=== PATIENT | female | born 1935 | race Caucasian/White ===

== ENCOUNTER 2018-08-20 10:55 | Day surgery (SDC) | payer MEDICARE ==
[~2018-08-20 10:55] MED LIST: Lactated Ringers 1,000 ML IV SCH; Lidocaine 1%/Sod Bicarbonate in NS 8.4% 1 ML Syringe IDERM PRN; Sodium Chloride 0.9% 10 ML Syringe FLUSH PRN
[2018-08-20] MEDS ORDERED: Triamcinolone Acetonide 40 MG/ML 1 ML MDV ONE (11:13)
[2018-08-20] MEDS ORDERED: Lidocaine 1% 30 ML SDV ONE (11:13)
--- NOTE | 2018-08-20 12:08 | PCM.PREANE ---
Preanesthetic Assessment - Anesthesia/Transfusion/Family Hx Anesthesia History: Prior Anesthesia Without Reaction Family History of Anesthesia Reaction: No Transfusion History: Prior Transfusion Without Reaction Intubation History: Unknown - Review of Systems General: No Symptoms Pulmonary: No Symptoms Cardiovascular: Palpitations (History of heart racinig: more than 10 years) Gastrointestinal: No Symptoms (GERD) Neurological: No Symptoms, Tingling (bilateral fingers on occasion (pinky right mostly)) Other: Reports: Easy Bleeding, Easy Bruising, Neck Pain (occasionaly) - Physical Assessment NPO Status Date: 08/19/18 NPO Status Time: 17:30 Pulse: 64 O2 Sat by Pulse Oximetry: 94 Respiratory Rate: 16 Blood Pressure: 149/69 Temperature: 36.2 C Vital Signs: Last Vital Signs Temp 36.2 C 08/20/18 11:15 Pulse 64 08/20/18 11:15 Resp 16 08/20/18 11:15 BP 149/69 H 08/20/18 11:15 Pulse Ox 94 L 08/20/18 11:15 Height: 1.52 m Weight: 60.781 kg ASA Class: 2 Mental Status: Alert & Oriented x3 Airway Class: Mallampati = 2 Dentition: Reports: Dentures Thyro-Mental Finger Breadths: 3 Mouth Opening Finger Breadths: 3 ROM/Head Extension: Full Lungs: Clear to Auscultation, Normal Respiratory Effort Cardiovascular: Regular Rate, Regular Rhythm, No Murmurs - Lab Values: Laboratory Last Values MRSA (PCR) Negative 08/11/18 17:10 All lab values reviewed and noted and within acceptable ranges to proceed with scheduled procedure. - Imaging/EKG Impressions: SR rate= 68 - Allergies Allergies/Adverse Reactions: Allergies Allergy/AdvReac Type Severity Reaction Status Date / Time No Known Allergies Allergy Verified 08/19/18 14:54 - Anesthesia Plan Pre-Op Medication Ordered: None - Acknowledgements Anesthesia Type Planned: MAC Pt an Appropriate Candidate for the Planned Anesthesia: Yes Alternatives and Risks of Anesthesia Discussed w Pt/Guardian: Yes Pt/Guardian Understands and Agrees with Anesthesia Plan: Yes PreAnesthesia Questionnaire HEENT History: Reports: Cataract, Impaired Vision, Other (See Below) Other HEENT History: wears dentures, wears glasses, left cerumen impacted Cardiovascular History: Reports: High Cholesterol Respiratory History: Reports: None Gastrointestinal History: Reports: Chronic Diarrhea, Gastritis, GERD, Hiatal Hernia, Other (See Below) Other Gastrointestinal History: esophageal stricture, microscopic colitis Genitourinary History: Reports: None 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: Musculoskeletal History: Reports: Arthritis Neurological History: Reports: None Psychiatric History: Reports: None Endocrine/Metabolic History: Reports: None Hematologic History: Reports: None Immunologic History: Reports: None Oncologic (Cancer) History: Reports: Basal Cell Carcinoma Dermatologic History: Reports: Other (See Below) Other Dermatologic History: seborrheic keratosis - Past Surgical History Head Surgeries/Procedures: Reports: None HEENT Surgical History: Reports: Cataract Surgery, Tonsillectomy Cardiovascular Surgical History: Reports: None Respiratory Surgical History: Reports: None GI Surgical History: Reports: Appendectomy, Colonoscopy, EGD Female Surgical History: Reports: D&C Male Surgical History: Reports: None Endocrine Surgical History: Reports: None Neurological Surgical History: Reports: None Musculoskeletal Surgical History: Reports: None Oncologic Surgical History: Reports: None Dermatological Surgical History: Reports: None - SUBSTANCE USE Smoking Status *Q: Never Smoker Recreational Drug Use History: No - HOME MEDS Home Medications: Home Meds Cholecalciferol (Vitamin D3) [Vitamin D3] 1,000 unit PO DAILY 02/13/18 [History] Gluc 2KCl/Chondr/Melecio Hy/Hy Ac [Glucosamine & Chondroitin Cap] 1 cap PO DAILY [History] Levocetirizine Dihydrochloride [Xyzal] 5 mg PO DAILY PRN 08/19/18 [History] Magnesium 200 mg PO DAILY 08/19/18 [History] traMADol [Ultram] 50 - 100 mg PO Q6H PRN #10 tab 08/20/18 [Rx] - CURRENT (IN HOUSE) MEDS Current Meds: Current Medications Lactated Ringer's (Ringers, Lactated) 1,000 mls @ 125 mls/hr IV ASDIRECTED JOSTIN Stop: 08/20/18 23:00 Lidocaine/Sodium Bicarbonate (Buffered Lidocaine 1% In Ns 8.4%) 0.25 ml IDERM ONETIME PRN PRN Reason: Prior to IV Start Stop: 08/20/18 23:00 Sodium Chloride (Saline Flush) 10 ml FLUSH ASDIRECTED PRN PRN Reason: Keep Vein Open Stop: 08/20/18 23:00 Discontinued Medications Bupivacaine HCl (Marcaine 0.25%) Confirm Administered Dose 30 ml .ROUTE .STK- MED ONE Stop: 08/20/18 11:14 Lidocaine HCl (Xylocaine-Mpf 1%) Confirm Administered Dose 30 ml .ROUTE .STK- MED ONE Stop: 08/20/18 11:14 Triamcinolone Acetonide (Kenalog-40) Confirm Administered Dose 40 mg .ROUTE .STK -MED ONE Stop: 08/20/18 11:14
[2018-08-20] MEDS ORDERED: fentaNYL 100 MCG/2 ML SDV ONE (12:42)
[2018-08-20] MEDS ORDERED: Propofol 200 MG/20 ML SDV ONE (12:46)
[2018-08-20] MEDS: Bupivacaine 0.25% 30 ML SDV ONE ×2 (12:52→13:13)
--- NOTE | 2018-08-20 13:29 | PCM.POSTAN ---
POST ANESTHESIA ASSESSMENT - MENTAL STATUS Mental Status: Alert - RESPIRATORY Respiratory Status: Respiratory Rate WNL, Airway Patent, O2 Saturation Stable, Supplemental Oxygen - CARDIOVASCULAR CV Status: Pulse Rate WNL, Blood Pressure Stable - GASTROINTESTINAL GI Status: No Symptoms - POST OP HYDRATION Hydration Status: Adequate & Stable
--- NOTE | 2018-08-20 13:30 | PCM48HPAN ---
Post Anesthesia Note - EVALUATION WITHIN 48HRS OF ANESTHETIC Vital Signs in Normal Range: Yes Patient Participated in Evaluation: Yes Respiratory Function Stable: Yes Airway Patent: Yes Cardiovascular Function Stable: Yes Hydration Status Stable: Yes Pain Control Satisfactory: Yes Nausea and Vomiting Control Satisfactory: Yes Mental Status Recovered: Yes Pulse Rate: 64 Resp Rate: 16 Temperature: 36.2 C Blood Pressure: 149/69
--- NOTE | 2018-08-24 07:59 | PCM.OPNOTE ---
- General Post-Op/Procedure Note Date of Surgery/Procedure: 08/20/18 Operative Procedure(s): right middle finger a1 patricia release and first carpometacarpal joint injection Pre Op Diagnosis: right middle finger stenosing tenosynovitis and right first carpometacarpal joint arthritis Post-Op Diagnosis: Same Anesthesia Technique: Local, MAC Primary Surgeon: Scott Richards Anesthesia Provider: Antonio Haque Control Tower Operator: Sera Sibley in mLs: 5 Complications: None Condition: Good
--- NOTE | 2018-08-25 11:14 | OR ---
DATE OF OPERATION: 08/20/2018 SURGEON: Scott Richards MD OPERATION PERFORMED: Right middle finger A1 patricia release and first metacarpal joint injection with tenolysis. PREOPERATIVE DIAGNOSIS: Right middle finger stenosing tenosynovitis with significant tenodesis and right first carpometacarpal joint osteoarthritis. POSTOPERATIVE DIAGNOSIS: Right middle finger stenosing tenosynovitis with significant tenodesis and right first carpometacarpal joint osteoarthritis. ANESTHESIA: Local MAC. ANESTHESIA PROVIDER: Antonio Haque CRNA. IN FLIGHT REFUELING OPERATOR: Sera Sibley PA-C. ESTIMATED BLOOD LOSS: Less than 5 mL. COMPLICATIONS: None. CONDITION: Stable. DESCRIPTION OF PROCEDURE: The patient was identified in the preoperative holding area. Proper site was marked and identified by the surgeon. The patient was taken back to the operating theater where after adequate anesthesia, the patient's right upper extremity was sterilely prepped and draped in the usual sterile fashion. OR time-out was performed. The patient received 2 g IV Ancef at this time. 1% lidocaine without epinephrine and 0.25% Marcaine without epinephrine was used to anesthetize the incisional site over the A1 patricia of the right long finger. Esmarch was then used as a tourniquet on the forearm. Once it was anesthetized, transverse incision was made over the A1 patricia. Blunt dissection was taken down to the tendon sheath. There was noted to have significant adhesions over the A1 patricia region and a Dawson blade was used to release the A1 patricia. The tendons were noted to have significant adhesions and at this time, a tenolysis was performed to the deep end of superficial flexor tendons of the right middle finger with significant scar removal. At this time, the patient was noted to have full extension of the MCP and PIP joint compared to preoperatively. The patient at this time then had an injection done to the basal thumb joint with 1 mL 40 mg Kenalog and 2 mL of 0.25% Marcaine. Adequate saline was irrigated through the wound. 4-0 nylon sutures were used for closure of the skin. The patient had sterile soft dressing applied and was sent to PACU in stable condition. MMODAL /[id number]
== END 2018-08-20 14:12 | disposition home or self-care (01) ==
LOC: JD.SDS 10:55
PROVIDERS: ATTEND Orthopaedic Surgery
DX: M18.11 Unilateral primary osteoarthritis of first carpometacarpal joint, right hand (principal); M65.841 Other synovitis and tenosynovitis, right hand; M65.331 Trigger finger, right middle finger; H61.22 Impacted cerumen, left ear; E78.00 Pure hypercholesterolemia, unspecified; E78.5 Hyperlipidemia, unspecified; K22.2 Esophageal obstruction; K21.9 Gastro-esophageal reflux disease without esophagitis; C44.41 Basal cell carcinoma of skin of scalp and neck; Z85.89 Personal history of malignant neoplasm of other organs and systems; Z98.890 Other specified postprocedural states; Z79.899 Other long term (current) drug therapy
CPT/HCPCS: 26055; 87641; J2001; J2704; J3010; J3301; J3490; J7120; 01810

== ENCOUNTER 2020-10-31 08:58 | Emergency (ER) | payer MEDICARE ==
--- NOTE | 2020-10-31 09:31 | EDM.PDOC ---
ED HPI GENERAL MEDICAL PROBLEM - General Chief Complaint: Lower Extremity Injury/Pain Stated Complaint: [facility] Time Seen by Provider: 10/31/20 09:08 Source of Information: Reports: Patient, EMS History Limitations: Reports: No Limitations - History of Present Illness INITIAL COMMENTS - FREE TEXT/NARRATIVE: The patient presents by [facility] for left knee pain and swelling. This has been going no for over a week but the past couple of days she cannot put any weight on her leg. She denies any trauma. She is scheduled to see Dr Latif on . She has no fever, chills, cough, chest pain, shortness of breath, abdominal pain, nausea or vomiting. She does have a history of arthritis to that knee. Onset: Gradual Duration: Week(s): Location: Reports: Lower Extremity, Left (knee) Quality: Reports: Sharp Severity: Moderate Improves with: Reports: Immobilization Worsens with: Reports: Movement Context: Denies: Trauma Associated Symptoms: Reports: No Other Symptoms left leg Pain Score (Numeric/FACES): 7 - Related Data Allergies Allergy/AdvReac Type Severity Reaction Status Date / Time No Known Allergies Allergy Verified 10/31/20 09:10 Home Meds: Home Meds Cholecalciferol (Vitamin D3) [Vitamin D3] 1,000 unit PO DAILY 02/13/18 [History] Magnesium 200 mg PO DAILY 08/19/18 [History] Levothyroxine 0 mcg PO DAILY 09/04/20 [History] traMADol [Ultram] 50 mg PO Q6H PRN #20 tab 10/31/20 [Rx] Past Medical History HEENT History: Reports: Cataract, Impaired Vision, Other (See Below) Other HEENT History: wears dentures, wears glasses, left cerumen impacted Cardiovascular History: Reports: High Cholesterol Respiratory History: Reports: None Gastrointestinal History: Reports: Chronic Diarrhea, Gastritis, GERD, Hiatal Hernia, Other (See Below) Other Gastrointestinal History: esophageal stricture, microscopic colitis Genitourinary History: Reports: None 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: Musculoskeletal History: Reports: Arthritis Neurological History: Reports: None Psychiatric History: Reports: None Endocrine/Metabolic History: Reports: None Hematologic History: Reports: None Immunologic History: Reports: None Oncologic (Cancer) History: Reports: Basal Cell Carcinoma Dermatologic History: Reports: Other (See Below) Other Dermatologic History: seborrheic keratosis - Past Surgical History Head Surgeries/Procedures: Reports: None HEENT Surgical History: Reports: Cataract Surgery, Tonsillectomy Cardiovascular Surgical History: Reports: None Respiratory Surgical History: Reports: None GI Surgical History: Reports: Appendectomy, Colonoscopy, EGD Female Surgical History: Reports: D&C Endocrine Surgical History: Reports: None Neurological Surgical History: Reports: None Musculoskeletal Surgical History: Reports: None Oncologic Surgical History: Reports: None Dermatological Surgical History: Reports: None Social & Family History - Tobacco Use Tobacco Use Status *Q: Never Tobacco User - Caffeine Use Caffeine Use: Reports: Tea - Recreational Drug Use Recreational Drug Use: No Review of Systems - Review of Systems Review Of Systems: See Below Constitutional: Reports: No Symptoms Eyes: Reports: No Symptoms Ears: Reports: No Symptoms Nose: Reports: No Symptoms Mouth/Throat: Reports: No Symptoms Respiratory: Reports: No Symptoms Cardiovascular: Reports: No Symptoms GI/Abdominal: Reports: No Symptoms Genitourinary: Reports: No Symptoms Musculoskeletal: Reports: Other (Left knee pain and swelling) ED EXAM, GENERAL - Physical Exam Exam: See Below Exam Limited By: No Limitations General Appearance: Alert, No Apparent Distress Ears: Normal External Exam Nose: Normal Inspection Head: Atraumatic, Normocephalic Neck: Normal Inspection Respiratory/Chest: No Respiratory Distress, Lungs Clear, Normal Breath Sounds Cardiovascular: Regular Rate, Rhythm, No Edema, No Murmur GI/Abdominal: Soft, Non-Tender, No Organomegaly, No Mass Extremities: Other (Moderate edema to the left knee with pain upon palpation. Good sensation and pulses distally.) ED JOINT ASPIRATION PROCEDURE - Joint Apsiration/Arthrocentesis Site: Left knee Skin prep: Other (Chlorprep) Local anesthesia: Lidocaine: 1% Plain Local Anesthetic Volume: 2cc Aspiration needle size: 18g Aspirate appearance: serous Aspirate amount in cc's: 40 Joint injection: other and amount: (kenalog) Dressing: adhesive dressing Complications: No Course - Vital Signs Last Recorded V/S: Last Vital Signs Temp 97.5 F 10/31/20 09:06 Pulse 80 10/31/20 09:06 Resp 17 10/31/20 09:06 BP 148/99 H 10/31/20 09:06 Pulse Ox 100 10/31/20 09:06 - Orders/Labs/Meds Orders: Active Orders 24 hr Category Date Time Status CULTURE, ANAEROBE & AEROBE [MREF] Stat Lab 10/31/20 10:53 Received SYNOVIAL CRYSTALS Stat Lab 10/31/20 10:53 Received SYNOVIAL FLUID ANALYSIS [BF] Stat Lab 10/31/20 10:53 Results Labs: Laboratory Tests 10/31/20 10/31/20 10/31/20 Range/Units 09:51 09:51 09:51 WBC 8.10 (3.98-10.04) K/mm3 RBC 4.35 (3.98-5.22) M/mm3 Hgb 13.3 (11.2-15.7) gm/dl Hct 40.7 (34.1-44.9) % MCV 93.6 (79.4-94.8) fl MCH 30.6 (25.6-32.2) pg MCHC 32.7 (32.2-35.5) g/dl RDW Std Deviation 46.3 (36.4-46.3) fL Plt Count 241 (182-369) K/mm3 MPV 9.8 (9.4-12.3) fl Neut % (Auto) 80.1 H (34.0-71.1) % Lymph % (Auto) 12.2 L (19.3-51.7) % [place] % (Auto) 7.3 (4.7-12.5) % Eos % (Auto) 0.2 L (0.7-5.8) Baso % (Auto) 0.1 (0.1-1.2) % Neut # (Auto) 6.48 H (1.56-6.13) K/mm3 Lymph # (Auto) 0.99 L (1.18-3.74) K/mm3 [place] # (Auto) 0.59 H (0.24-0.36) K/mm3 Eos # (Auto) 0.02 L (0.04-0.36) K/mm3 Baso # (Auto) 0.01 (0.01-0.08) K/mm3 ESR 6 (0-20) mm/hr Sodium 144 (136-145) mEq/L Potassium 3.5 (3.5-5.1) mEq/L Chloride 106 (98-107) mEq/L Carbon Dioxide 29 (21-32) mEq/L Anion Gap 12.5 (5-15) BUN 9 (7-18) mg/dL Creatinine 0.7 (0.55-1.02) mg/dL Est Cr Clr Drug Dosing 54.00 mL/min Estimated GFR (MDRD) > 60 (>60) mL/min BUN/Creatinine Ratio 12.9 L (14-18) Glucose 120 H (70-99) mg/dL Calcium 8.8 (8.5-10.1) mg/dL Total Bilirubin 0.4 (0.2-1.0) mg/dL AST 12 L (15-37) U/L ALT 29 (14-59) U/L Alkaline Phosphatase 107 (46-116) U/L C-Reactive Protein 2.4 H* (<1.0) mg/dL Total Protein 7.1 (6.4-8.2) g/dl Albumin 3.8 (3.4-5.0) g/dl Globulin 3.3 gm/dL Albumin/Globulin Ratio 1.2 (1-2) Synovial Fluid Site Synovial Color Synovial Appearance (CLEAR) Synovial Volume Synovial WBC (0.200-0.600) k/mm*3 Synovial RBC (0.00-0.003) 10*6/uL /01/11 Range/Units 10:53 WBC (3.98-10.04) K/mm3 RBC (3.98-5.22) M/mm3 Hgb (11.2-15.7) gm/dl Hct (34.1-44.9) % MCV (79.4-94.8) fl MCH (25.6-32.2) pg MCHC (32.2-35.5) g/dl RDW Std Deviation (36.4-46.3) fL Plt Count (182-369) K/mm3 MPV (9.4-12.3) fl Neut % (Auto) (34.0-71.1) % Lymph % (Auto) (19.3-51.7) % [place] % (Auto) (4.7-12.5) % Eos % (Auto) (0.7-5.8) Baso % (Auto) (0.1-1.2) % Neut # (Auto) (1.56-6.13) K/mm3 Lymph # (Auto) (1.18-3.74) K/mm3 [place] # (Auto) (0.24-0.36) K/mm3 Eos # (Auto) (0.04-0.36) K/mm3 Baso # (Auto) (0.01-0.08) K/mm3 ESR (0-20) mm/hr Sodium (136-145) mEq/L Potassium (3.5-5.1) mEq/L Chloride (98-107) mEq/L Carbon Dioxide (21-32) mEq/L Anion Gap (5-15) BUN (7-18) mg/dL Creatinine (0.55-1.02) mg/dL Est Cr Clr Drug Dosing mL/min Estimated GFR (MDRD) (>60) mL/min BUN/Creatinine Ratio (14-18) Glucose (70-99) mg/dL Calcium (8.5-10.1) mg/dL Total Bilirubin (0.2-1.0) mg/dL AST (15-37) U/L ALT (14-59) U/L Alkaline Phosphatase (46-116) U/L C-Reactive Protein (<1.0) mg/dL Total Protein (6.4-8.2) g/dl Albumin (3.4-5.0) g/dl Globulin gm/dL Albumin/Globulin Ratio (1-2) Synovial Fluid Site Left knee Synovial Color Yellow Synovial Appearance Turbid (CLEAR) Synovial Volume 20 Synovial WBC 24.230 H (0.200-0.600) k/mm*3 Synovial RBC (0.00-0.003) 10*6/uL Meds: Medications Discontinued Medications Generic Name Dose Route Start Last Admin Trade Name Rejiq PRN Reason Stop Dose Admin Lidocaine HCl 10 ml 10/31/20 10:15 10/31/20 10:37 Lidocaine 1% 10 Ml Mdv INJECT 10/31/20 10:16 10 ml ONETIME ONE Administration Tramadol HCl 50 mg 10/31/20 10:55 10/31/20 10:59 Tramadol 50 Mg Tab PO 10/31/20 10:56 50 mg ONETIME ONE Administration Triamcinolone Acetonide 40 mg 10/31/20 10:15 10/31/20 10:37 Triamcinolone Acetonide 40 Mg/Ml 1 Ml Sdv INJECT 10/31/20 10:16 40 mg ONETIME ONE Administration - Re-Assessments/Exams Free Text/Narrative Re-Assessment/Exam: 10/31/20 09:31 I have ordered an x-ray of her knee and labs. She did get some intranasal fentanyl by EMS and the pain is under control. 10/31/20 11:22 Her x-ray shows increasing degenerative change. Mild concavity of the lateral tibial plateau which is an interval change. Joint effusion which is also an interval change. No acute osseous abnormality is definitely appreciated. 10/31/20 11:25 Her CBC looks good. Her ESR is normal. Her CRP is elevated at 2.4. I aspirated her left knee. I obtained about 40mls of serous fluid. I did send it to be analyzed. I gave her an ultram and we will get her up to see how she does. 10/31/20 12:20 The gram stain showed WBCs and no organisms. Her analysis shows WBCs. I feel this is from arthritis. She got up and walked and feels better. I will discharge her with some ultram as needed for pain and follow up with Dr Latif. Departure - Departure Time of Disposition: 12:25 Disposition: Home, Self-Care 01 Condition: Good Clinical Impression: Effusion, left knee Osteoarthritis of left knee Qualifiers: Osteoarthritis type: primary Qualified Code(s): M17.12 - Unilateral primary osteoarthritis, left knee - Discharge Information Prescriptions: traMADol [Ultram] 50 mg PO Q6H PRN #20 tab PRN Reason: Pain Referrals: PCP,None [Primary Care Provider] - Bolivar Latif DO [Physician] - 1 Week Forms: ED Department Discharge Additional Instructions: Use your walker as needed for pain. Take tylenol as needed for pain. If that does not help, try the ultram. Follow up with Dr Latif in 2 days. Please return if you are worse. Sepsis Event Note (ED) - Evaluation Sepsis Screening Result: No Definite Risk - Focused Exam Vital Signs: Vital Signs Temp Pulse Resp BP Pulse Ox 10/31/20 09:06 97.5 F 80 17 148/99 H 100 - My Orders Last 24 Hours: My Active Orders 10/31/20 10:53 CULTURE, ANAEROBE & AEROBE [MREF] Stat SYNOVIAL CRYSTALS Stat SYNOVIAL FLUID ANALYSIS [BF] Stat - Assessment/Plan Last 24 Hours: My Active Orders 10/31/20 10:53 CULTURE, ANAEROBE & AEROBE [MREF] Stat SYNOVIAL CRYSTALS Stat SYNOVIAL FLUID ANALYSIS [BF] Stat
--- NOTE | 2020-10-31 10:05 | CR ---
Left knee: 4 views of the left knee were obtained. Comparison: Prior left knee radiographic study of 09/04/20. Moderate narrowing is noted within the medial compartment. This has increased from previous exam. There is slight depression of the lateral tibial plateau which is an interval change. Chondrocalcinosis is seen within the menisci. Stable bony density is noted off the superior patella which is detached. Small osteophyte is seen off the inferior patella. Joint effusion is seen which is an interval change from prior study. Impression: 1. Increasing degenerative change as noted above. 2. Mild concavity of the lateral tibial plateau which is an interval change. 3. Joint effusion which is also an interval change. 4. No acute osseous abnormality is definitely appreciated. Diagnostic code #2
[2020-10-31] MEDS ORDERED: Lidocaine 1% 10 ML MDV INJECT ONE (10:15)
[2020-10-31] MEDS ORDERED: Triamcinolone Acetonide 40 MG/ML 1 ML SDV INJECT ONE (10:15)
[2020-10-31] MEDS ORDERED: traMADol 50 MG Tab PO ONE (10:55)
== END 2020-10-31 12:28 | disposition home or self-care (01) ==
LOC: JD.ED 08:58
DX: M17.12 Unilateral primary osteoarthritis, left knee (principal); M25.462 Effusion, left knee; Z79.899 Other long term (current) drug therapy
CPT/HCPCS: 20610; 36415; 73564-26-LT; 73564-LT; 80053; 85025; 85652; 86140; 87070; 87075; 87205; 89060; 99283; 99284-25; A9270-GY; J3301

== ENCOUNTER 2021-05-30 08:29 | Day surgery (SDC) | payer MEDICARE ==
[~2021-05-30 08:29] MED LIST changes: +Sodium Chloride 0.9% 10 ML Syringe FLUSH SCH
[2021-05-30] MEDS ORDERED: Lidocaine 1% 4 ML ONE (10:56)
[2021-05-30] MEDS ORDERED: Propofol 200 MG/20 ML SDV ONE (10:56)
[2021-05-30] MEDS: Lidocaine 1% 30 ML SDV ONE ×2 (10:59→11:09)
[2021-05-30] MEDS: Bupivacaine 0.25% 10 ML SDV ONE ×2 (10:59→11:09)
[2021-05-30] MEDS ORDERED: Lidocaine 1% 2 ML ONE (11:21)
[2021-05-30] MEDS ORDERED: Triamcinolone Acetonide 40 MG/ML 1 ML SDV ONE (11:21)
== END 2021-05-30 12:56 | disposition home or self-care (01) ==
LOC: JD.SDS 08:29
PROVIDERS: ATTEND Orthopaedic Surgery
DX: M65.842 Other synovitis and tenosynovitis, left hand (principal); M19.042 Primary osteoarthritis, left hand; K21.9 Gastro-esophageal reflux disease without esophagitis; E03.9 Hypothyroidism, unspecified; M85.80 Other specified disorders of bone density and structure, unspecified site; I10 Essential (primary) hypertension; Z79.899 Other long term (current) drug therapy; Z90.49 Acquired absence of other specified parts of digestive tract; Z98.890 Other specified postprocedural states; E78.00 Pure hypercholesterolemia, unspecified
CPT/HCPCS: 20600; 26055; J2704; J3301; J3490; J7120; 01810; 99100

== ENCOUNTER 2022-05-08 19:49 | Emergency (ER) | payer MEDICARE ==
[2022-05-08] MEDS ORDERED: Sodium Chloride 0.9% 10 ML Syringe FLUSH PRN (20:12)
[2022-05-08 20:59] LABS: ESTIMATED GFR 71 mL/min (>60)
== END 2022-05-08 21:54 | disposition home or self-care (01) ==
LOC: JD.ED 19:49
DX: R07.89 Other chest pain (principal); E78.00 Pure hypercholesterolemia, unspecified; I10 Essential (primary) hypertension; K21.9 Gastro-esophageal reflux disease without esophagitis; E03.9 Hypothyroidism, unspecified; Z79.899 Other long term (current) drug therapy
CPT/HCPCS: 36415; 71045; 71045-26; 80053; 84484; 85025; 93005; 93010; 99284; 99285; J3490